=== PATIENT | male | born 1965 | race Native Hawaiian/Other Pacific Islander ===

== ENCOUNTER 2018-05-12 23:40 | Observation (INO) | payer OTHER ==
[~2018-05-12] VITALS: Ht 170.2 cm; Wt 94.3 kg
[2018-05-12 23:43] VITALS: BP 205/108; TEMP 98
[2018-05-13] VITALS (10 sets, daily range): BP systolic 105–152; BP diastolic 61–93; TEMP 98–98.5; Ht 170.2 cm; Wt 94.3 kg
[2018-05-13 00:05] LABS: PLATELET COUNT 318 K/uL (142-355)
[2018-05-13 00:35] LABS: POTASSIUM 3.1 mmol/L (3.6-5.2)
== END 2018-05-13 10:15 | disposition short-term general hospital (02) ==
LOC: ED 23:40 → MED/SURG 05-13 01:35
DX: I21.4 Non-ST elevation (NSTEMI) myocardial infarction (principal); R07.89 Other chest pain; K21.9 Gastro-esophageal reflux disease without esophagitis
CPT/HCPCS: 36415; 80053; 80307; 81000; 82550; 82553; 84484; 85027; 93005; 94760; 96372; 96374; 99220; 99284; G0378; J1650; J2270; J3490

== ENCOUNTER 2018-05-13 10:16 | Outpatient (CLI) | payer OTHER | END 2018-05-13 10:46 | disposition short-term general hospital (02) | LOC: AMB 10:16 | DX: I21.4 Non-ST elevation (NSTEMI) myocardial infarction (principal); R07.89 Other chest pain; K21.9 Gastro-esophageal reflux disease without esophagitis | CPT/HCPCS: A0425; A0427 ==